=== PATIENT | female | born 1985 | race Hispanic/Latino ===

== ENCOUNTER 2020-07-19 17:27 | Inpatient (IN) | payer BC ==
[2020-07-19] MEDS ORDERED: NS / Oxytocin 40 units/1000ml 1,000 ML IV PRN (18:30)
[2020-07-19] MEDS ORDERED: Ondansetron PF 4 MG/2 ML Vial IVP PRN ×2 (18:30→20:53)
[2020-07-19] MEDS ORDERED: Promethazine HCl 25 MG/ML VIAL IM PRN ×2 (18:30→20:53)
[2020-07-19] MEDS ORDERED: hydrALAZINE 20 MG/ML VIAL SLOW IVP PRN (18:30)
[2020-07-19] MEDS ORDERED: Lidocaine 1% (PF) 30 ML VIAL SC PRN (18:30)
[2020-07-19 18:57] LABS: Hemoglobin 11.5 g/dL (12.0-15.5); Mean Corpuscular HGB CONC 34.6 g/dL (32.0-36.0); Mean Corpuscular Hemoglobin 32.6 pg (27.0-33.0); Mean Corpuscular Volume 94.1 fl (81.6-98.3); Mean Platelet Volume 10.9 fl (7.4-10.4); Platelet Count 275 10x3/uL (150-450); RBC Distribution Width 14.8 % (11.5-14.5); Red Blood Cell (RBC) Count 3.53 10x6/uL (3.90-5.03); White Blood Cell (WBC) Count 10.5 10x3/uL (3.5-10.5)
[2020-07-19] MEDS ORDERED: Penicillin G Potassium 5 MILL.UNITS in Sodium Chloride 0.9% 100 ML IVPB SCH (19:15)
[2020-07-19 19:29] LABS: Hep B Surf Ag Non-Reactive S/CO (NonReactive); Syphilis Antibody Nonreactive (Nonreactive); Syphilis Antibody Index 0.07 S/CO (<1.00 Non-Reactive)
[2020-07-19 19:44] LABS: HBSAg Index 0.11 S/CO (0-0.99)
[2020-07-19] MEDS ORDERED: NS w/ Oxytocin 30 units 500 ML ONE (19:57)
[2020-07-19] MEDS ORDERED: Fentanyl 4 mcg/Bup 0.1% Cadd 100 ML ONE (20:15)
[2020-07-19] MEDS ORDERED: diphenhydrAMINE 50 MG/ML VIAL IVP PRN (20:53)
[2020-07-19] MEDS ORDERED: Eucerin (Mineral Oil/Petrolatum,White) 30 gm Jar TOP PRN (20:53)
[2020-07-19] MEDS ORDERED: Naloxone HCl 0.4 mg/ml Vial IVP PRN ×2 (20:53)
[2020-07-19] MEDS ORDERED: Lactated Ringer's 500 ML IV PRN (20:53)
[2020-07-19] MEDS ORDERED: ePHEDrine 50 MG/ML VIAL SLOW IVP PRN (20:53)
[2020-07-19] MEDS ORDERED: Acetaminophen 325 MG TAB PO PRN (20:53)
[2020-07-19] MEDS ORDERED: Fentanyl 4 mcg/Bupivacaine 0.1% Cassette 100 ML EPIDURAL SCH (21:00)
[2020-07-19] MEDS ORDERED: Communication Order-Pharmacy FS SCH (21:00)
[2020-07-20] MEDS: Penicillin G 2.5 MILL.units 2.5 MILL.UNITS in Premix Bag 1 BAG IVPB SCH ×2 (00:02→15:14)
[2020-07-20] MEDS: Lactated Ringer's 1,000 ML IV SCH ×2 (00:09→15:14)
[2020-07-20] MEDS ORDERED: Lidocaine 1% (PF) 30 ML VIAL ONE (00:49)
[2020-07-20] MEDS ORDERED: NS w/ Oxytocin 30 units 500 ML ONE (00:50)
[2020-07-20] MEDS ORDERED: Milk Of Magnesia 30 ML UDCUP PO PRN (05:45)
[2020-07-20] MEDS ORDERED: Lanolin Ointment 7 GM TUBE TOP PRN (05:45)
[2020-07-20] MEDS ORDERED: Bisacodyl 10 MG SUPP PR PRN (05:45)
[2020-07-20] MEDS ORDERED: Preparation H Ointment 28 GM TUBE PR PRN (05:45)
[2020-07-20] MEDS ORDERED: hydrALAZINE 20 MG/ML VIAL SLOW IVP PRN (05:45)
[2020-07-20] MEDS ORDERED: Ondansetron PF 4 MG/2 ML Vial IVP PRN (05:45)
[2020-07-20] MEDS ORDERED: NS / Oxytocin 40 units/1000ml 1,000 ML IV SCH (05:45)
[2020-07-20] MEDS ORDERED: Benzocaine-Menthol 82.5 ML CAN TOP PRN (05:45)
[2020-07-20] MEDS ORDERED: NS w/ Oxytocin 30 units 500 ML IV SCH (06:00)
[2020-07-20 08:07] VITALS: BMI 38.5
[2020-07-20] MEDS ORDERED: Adacel (T-DAP) 0.5 ML SYRINGE IM ONE (09:00)
[2020-07-20 13:07] LABS: SARS-CoV-2 PCR by NAA Not Detected (NotDetected)
[2020-07-20] MEDS: Ibuprofen 800 MG TAB PO SCH ×3 (15:13→21:53)
[2020-07-20] MEDS: Ferrous Sulfate 325 MG TAB PO SCH ×2 (15:13→17:10)
[2020-07-20] MEDS: Polyethylene Glycol 3350 17 GM Packet PO SCH (15:14)
[2020-07-20] MEDS: Docusate Calcium (SURFAK) 240 MG CAP PO SCH ×2 (15:14→21:52)
[2020-07-21] MEDS: Ibuprofen 800 MG TAB PO SCH ×3 (07:26→21:39)
[2020-07-21] MEDS: Ferrous Sulfate 325 MG TAB PO SCH ×2 (07:52→16:11)
[2020-07-21] MEDS: Polyethylene Glycol 3350 17 GM Packet PO SCH (07:55)
[2020-07-21] MEDS: Docusate Calcium (SURFAK) 240 MG CAP PO SCH ×2 (07:55→21:39)
[2020-07-22] MEDS: Ibuprofen 800 MG TAB PO SCH (05:27)
[2020-07-22] MEDS: Ferrous Sulfate 325 MG TAB PO SCH (07:21)
[2020-07-22 07:57] VITALS: BP 116/59; TEMP 98.2
[2020-07-22] MEDS: Docusate Calcium (SURFAK) 240 MG CAP PO SCH (08:21)
[2020-07-22] MEDS: Polyethylene Glycol 3350 17 GM Packet PO SCH (08:21)
== END 2020-07-22 12:15 | disposition home or self-care (01) | DRG 806 ==
LOC: CSHLD/OP 17:27 → CSHLD 19:01 → CSHPP 07-20 13:03
PROVIDERS: ADMIT Obstetrics & Gynecology; ATTEND Obstetrics & Gynecology
PROC: 10E0XZZ Delivery of Products of Conception, External Approach (ICD-10-PCS; principal; 2020-07-20)
PROC: 0UQMXZZ Repair Vulva, External Approach (ICD-10-PCS; 2020-07-20)
DX: O77.0 Labor and delivery complicated by meconium in amniotic fluid (principal); O98.82 Other maternal infectious and parasitic diseases complicating childbirth; Z37.0 Single live birth; B95.1 Streptococcus, group B, as the cause of diseases classified elsewhere; Z3A.40 40 weeks gestation of pregnancy; O71.82 Other specified trauma to perineum and vulva; Z20.822 Contact with and (suspected) exposure to COVID-19
CPT/HCPCS: 36415; 51702; 85027; 86780; 86850; 86900; 86901; 87340; 87635; 99285; J2540; J2590; J3490; U0003; U0005